=== PATIENT | female | born 1990 | race American Indian/Alaskan Native ===

== ENCOUNTER 2016-10-30 11:48 | Emergency (ER) | payer OTHER ==
--- NOTE | 2016-10-30 16:32 | Emergency Department Report ---
Abscess Boil HPI - HPI Chief Complaint: Skin/Abscess/Foreign Body Stated Complaint: HUGE BOIL Time Seen by Provider: 10/30/16 15:47 Duration: 1 Week Location: Other (under right breast) Severity: Moderate (6 out of 10) History: Yes Pain (to boil under left breast), Yes Purulent Drainage, No Fever, No Numbness, No Foreign Body, No Previous History, No Insect Bite HPI: Patient says she noted red area that is tender to touch underneath her right breast one week ago. She says she was able to get some pus out of it. She denies any fever or chills and denies any insect bite. She says she doesn' t know how it got there. Pain is 6 out of 10 and no [id number] medication taken. Patient says she tried to get some pus out of it and she got a little but it still red and swollen. Home Medications: Previous Rx's Medication Instructions Recorded Last Taken Type Cetirizine HCl [ZyrTEC] 10 mg PO DAILY #25 capsule 06/11/16 Unknown Rx Famotidine [Pepcid] 20 mg PO BID #40 tablet 06/11/16 Unknown Rx Ibuprofen [Motrin 800 MG tab] 800 mg PO TID PRN #30 tablet 06/11/16 Unknown Rx Cephalexin [Keflex] 500 mg PO Q8HR #30 cap 10/30/16 Unknown Rx traMADol [Ultram] 50 mg PO Q6HR PRN #20 tablet 10/30/16 Unknown Rx Allergies/Adverse Reactions: Allergies Allergy/AdvReac Type Severity Reaction Status Date / Time No Known Allergies Allergy Verified 10/30/16 12:21 ED Review of Systems ROS: Stated complaint: HUGE BOIL Other details as noted in HPI Comment: All other systems reviewed and negative Constitutional: denies: chills, fever ENT: denies: throat pain, congestion Respiratory: no symptoms reported Cardiovascular: denies: chest pain, palpitations, edema, syncope Gastrointestinal: denies: abdominal pain, nausea, vomiting Skin: other (boil underneath her right breast) Neurological: denies: headache ED Past Medical Hx - Past Medical History Previous Medical History?: Yes Hx Headaches / Migraines: Yes Additional medical history: hx of irregular heatbeat - Surgical History Past Surgical History?: No - Family History Family history: hypertension - Social History Smoking Status: Current Every Day Smoker Substance Use Type: Alcohol - Medications Home Medications: Home Medications Medication Instructions Recorded Confirmed Last Taken Type Cetirizine HCl [ZyrTEC] 10 mg PO DAILY #25 capsule 06/11/16 Unknown Rx Famotidine [Pepcid] 20 mg PO BID #40 tablet 06/11/16 Unknown Rx Ibuprofen [Motrin 800 MG tab] 800 mg PO TID PRN #30 tablet 06/11/16 Unknown Rx Cephalexin [Keflex] 500 mg PO Q8HR #30 cap 10/30/16 Unknown Rx traMADol [Ultram] 50 mg PO Q6HR PRN #20 tablet 10/30/16 Unknown Rx ED Abscess Boil Physical Exam - Exam General: Vital signs noted. No distress. Alert and acting appropriately. This is a 26-year-old female well-nourished well-developed in no acute distress. Size: 1 cm (indurated area, no fluctuance, erythema and tender to palpate to left breast.) Exam: Yes Tenderness (beneath the left breast), Yes Surrounding Cellulites/ Erythema (mild cellulitis), Yes Normal Neurologic Exam, Yes Normal Circulation, No Fluctuance, No Lymphangitis, No Crepitation, No Heart Murmur Exam: Lungs: Clear to auscultate bilaterally, no rhonchi wheezes or rales. Cardiocascular: S1, S2. Regular rate rhythm negative murmur. Extremity: No clubbing, cyanosis or edema. +2 Pulses. No neurovascular compromise. I & D Note - I & D Note I & D Note: Cellulitis: 2 with cellulitis diminished right breast. 1 cm without any fluctuance. Positive induration. No incision and drainage done. I instructed to place warm compresses to side 4 times a day. She will be started on antibiotic. Her tetanus shot is up-to-date. ED Course Vital Signs 10/30/16 12:21 Temperature 98.8 F Pulse Rate 86 Respiratory 18 Rate Blood Pressure 152/86 O2 Sat by Pulse 100 Oximetry - Reevaluation(s) Reevaluation #1: 10/30/16 17:07 had uneventful ED stay. Critical care attestation.: If time is entered above; I have spent that time in minutes in the direct care of this critically ill patient, excluding procedure time. ED Medical Decision Making - Medical Decision Making ED course: Pt With cellulitis underneath right breast. Patient given instruction and diagnosis and treatment plan and told to return to the emergency room if. If redness increases or if she develops fever or chills. Patient discharged home with prescription for Keflex and Ultram and to follow- up with her primary care physician in 3-5 days. No procedure done. ED Disposition Clinical Impression: Cellulitis of chest wall Disposition: DISCHARGED TO HOME OR SELFCARE Is pt being admited?: No Does the pt Need Aspirin: No Condition: Stable Instructions: Cellulitis (ED) Additional Instructions: please apply warm compresses 4xday to soften area. Take antibiotics as prescribed Prescriptions: Cephalexin [Keflex] 500 mg PO Q8HR #30 cap traMADol [Ultram] 50 mg PO Q6HR PRN #20 tablet PRN Reason: Pain Referrals: PRIMARY CARE, [Primary Care Provider] - 3-5 Days [facility] [Outside] - 3-5 Days Forms: Work/School Release Form(ED)
[2016-10-30 17:20] VITALS: BP 136/70
== END 2016-10-30 17:23 | disposition home or self-care (01) ==
LOC: ED 11:48
DX: L03.313 Cellulitis of chest wall (principal); G43.909 Migraine, unspecified, not intractable, without status migrainosus; F17.200 Nicotine dependence, unspecified, uncomplicated
CPT/HCPCS: 99282